=== PATIENT | male | born 1990 | race Caucasian/White ===

== ENCOUNTER 2021-12-10 11:07 | Emergency (ER) | payer MEDICAID, SELFPAY ==
--- NOTE | ~2021-12-10 | CT_ITS ---
EXAMINATION: CT ABDOMEN AND PELVIS WITHOUT CONTRAST CLINICAL INFORMATION: Question renal stones. COMPARISON: None TECHNIQUE: Multidetector volumetric imaging was performed from the superior aspect of the liver through the pubic symphysis. Sagittal and coronal reformatted images were obtained on the technologist's workstation. This CT examination was performed using dose optimization techniques as appropriate, variously including the following: *Automated exposure control *Adjustment of mA and/or kV according to patient size (this includes techniques or standardized protocols for targeted exams where dose is matched to indication/reason for exam; i.e. extremities or head) *Use of iterative reconstruction technique DLP: 357 mGy-cm FINDINGS: LUNG BASES: The lung bases appear clear, with no evidence of inflammation or nodules. LIVER, GALLBLADDER, AND BILIARY TREE: The liver appears unremarkable in size, shape, and attenuation. No focal hepatic lesion or biliary ductal dilatation is appreciated. Unremarkable appearance of the gallbladder. PANCREAS: Unremarkable SPLEEN: Unremarkable ADRENAL GLANDS: Unremarkable KIDNEYS AND URETERS: 0.3 cm distal left ureteral stone (image 66, axial series 3; image 47, coronal series 5). Mild associated left hydronephrosis and hydroureter. The kidneys otherwise appear unremarkable in size, shape, and attenuation. No hydronephrosis, hydroureter, or calculi seen seen on the right. BLADDER: Unremarkable GASTROINTESTINAL TRACT: The small and large bowel appear unremarkable. No diverticulosis. Normal-appearing distal ileum and vermiform appendix. ABDOMINAL WALL: No significant hernia is appreciated. LYMPH NODES: No evidence of adenopathy by size criteria. VASCULAR: Unremarkable PELVIC VISCERA: Unremarkable OSSEOUS STRUCTURES: Unremarkable CT/CT abdomen pelvis wo IV con IMPRESSION: 0.3 cm distal left ureteral stone. Mild associated left hydronephrosis and hydroureter.
[2021-12-10 11:34] VITALS: BP 137/88; PULSE 67; RESP 20; TEMP 35.9; O2SAT 98; BMI 21.1
[2021-12-10 11:47] LABS: Baso%MD 0.4 %; Eos%MD 1.1 %; Hematocrit 43.6 % (42.0-52.0); Hemoglobin 15.1 g/dl (14.0-18.0); IG%MD 0.4 %; Lymph%MD 9.6 %; Mean Corpuscular HGB Conc 34.6 g/dl (31.0-36.0); Mean Corpuscular Hemoglobin 31.4 pg (27.0-33.0); Mean Corpuscular Volume 90.6 fL (80.0-98.0); Mean Platelet Volume 10.1 fL (9.4-12.4); Mono%MD 4.9 %; Neut%MD 83.6 %; Platelet Count 264 X10*3/uL (160-400); Red Blood Count 4.81 X10*6/uL (4.60-5.80); Red Cell Distribution Width 12.9 % (11.0-16.0); White Blood Count 16.4 X10*3/uL (4.8-10.8)
[2021-12-10 11:58] LABS: Appearance Urine Turbid; Color Urine Dark Yellow; Glucose Urine UA Negative (Negative); Leukocyte Esterase Urine Trace (Negative); Nitrite Urine Negative (Negative); PH 5.5 (5.0-9.0); Specific Gravity - Urine >= 1.030 (1.005-1.025); UMIC TRIGGER UA YES; Urine Blood Large (3+) (Negative); Urine Ketones 15 mg/dL (Negative); Urine Protein 100 (2+) mg/dL (Neg-Trace)
[2021-12-10 12:03] LABS: Bacteria Urine None Seen (None Seen); RBC Urine >20 /HPF (0-2); Squamous Epithelial Cell Urine 0-2 /HPF (0-2); WBC Urine 0-5 /HPF (0-5)
[2021-12-10 12:04] LABS: Alanine Aminotransferase 22 U/L (0-40); Albumin Level 5.3 g/dL (3.5-5.0); Alkaline Phosphatase 87 U/L (39-117); Anion Gap 20 (12-20); Aspartate Amino Transferase 30 U/L (5-37); Bilirubin Total 0.9 mg/dL (0.0-1.0); Blood Urea Nitrogen 16 mg/dL (9-16); Calcium 9.8 mg/dL (8.4-10.2); Carbon Dioxide 22 mmol/L (22-29); Chloride 106 mmol/L (96-108); Creatinine Clr Calc Pharmacy 97.3; Estimated Glomerular Filt Rate > 60; Glucose Random 91 mg/dL (60-115); Potassium 4.1 mmol/L (3.3-5.1); Sodium 144 mmol/L (135-145); Total Protein 8.5 g/dL (6.5-8.0)
--- NOTE | 2021-12-10 12:45 | ED.ABDPAIN ---
HPI - Abdominal Pain General Chief Complaint: Abdominal Pain Stated Complaint: abd pain Time Seen by Provider: 12/10/21 12:23 Source: patient Mode of arrival: ambulatory Limitations: no limitations History of Present Illness HPI narrative: This is a 31 years old male presented to the emergency department with complaining of left flank pain since this morning denies any vomiting diarrhea fever he has a history of kidney stone MD elicited complaint: flank pain Pertinent past history: other (kidney stones) Onset (ago): hour(s) (4) Location: L flank Quality: aching Radiation: L flank Migration to: L flank Relieving factors: nothing Associated symptoms: denies other symptoms Related Data Previous Rx's Medication Instructions Recorded ibuprofen 800 mg tablet 800 mg PO TID PRN pain #20 tabs 12/10/21 oxycodone 5 mg tablet 5 mg PO Q6H PRN pain #15 tabs 12/10/21 tamsulosin 0.4 mg capsule (Flomax) 0.4 mg PO BEDTIME #10 caps 12/10/21 Allergies Allergy/AdvReac Type Severity Reaction Status Date / Time No Known Allergies Allergy Verified 12/10/21 12:38 Review of Systems Review of Systems Yes all other systems are reviewed and are negative Cardiovascular: Reports no additional cardiovascular complaints Respiratory: Reports no additional respiratory complaints Psychiatric: Reports no additional psychiatric complaints [facility] Past Medical History [facility] Narrative: kidney stones Social History Social History Alcohol intake: current Alcohol intake frequency: 0-2 drinks per day Smoked in Last 30 Days: Yes Use of substances other than those prescribed or required for medical reasons: Yes Substance Use Type: Marijuana Advance Directives: No Physical Exam ED Vital Signs: Vital Signs - 24 hr 12/10/21 11:34 12/10/21 13:12 12/10/21 13:43 Temperature 96.7 F L 97.6 F Pulse Rate 67 70 Respiratory Rate 20 18 15 Blood Pressure 137/88 125/84 Pulse Oximetry 98 100 Oxygen Delivery Method Room Air Room Air BMI result Body Mass Index 21.1 Const General: cooperative and healthy appearing Nutritional Appearance: average body habitus Orientation/consciousness: patient oriented x3 Limitations: no limitations HENMT Head: Yes normal to inspection Ears: hearing grossly normal bilaterally Face and sinus: Yes normal facial exam Mouth: Normal oral and palatal mucosa present Throat: Yes posterior oropharynx normal Neck Neck: Yes normal visual inspection and Yes full ROM Carotids: normal carotid upstroke Chest Chest palpation & inspection: normal inspection of the chest Resp Effort & Inspection: normal respiratory effort and able to speak in complete sentences Auscultation: clear to auscultation bilaterally Cardio Jugular venous distension: no JVD Rate: regular rate Rhythm: regular rhythm GI Inspection: Yes normal to inspection Palpation (GI): Soft to palpation and Tenderness to palpation present (GI) (left flank) Percussion: Yes normal to percussion Auscultation: normal bowel sounds General: Yes no CVA tenderness Back/Spine/Pelvis Back: no CVA tenderness Thoracic/Lumbar Spine: thoracic and lumbar spine normal to inspection Neuro General: patient oriented x3 Cranial nerves: Yes CN's II-XII intact bilaterally Course Reevaluation(s) Reevaluation #1: feels better ,asyntomatic at this time ct showed distal uretheral stone MDM - Abdominal Pain Lab Data Result diagrams: 12/10/21 11:42 12/10/21 11:42 Labs: Lab Results 12/10/21 12/10/21 12/10/21 Range/Units 11:42 11:42 11:42 WBC 16.4 H (4.8-10.8) X10*3/uL RBC 4.81 (4.60-5.80) X10*6/uL Hgb 15.1 (14.0-18.0) g/dl Hct 43.6 (42.0-52.0) % MCV 90.6 (80.0-98.0) fL MCH 31.4 (27.0-33.0) pg MCHC 34.6 (31.0-36.0) g/dl RDW 12.9 (11.0-16.0) % Plt Count 264 (160-400) X10*3/uL MPV 10.1 (9.4-12.4) fL Absolute Nucleated RBC 0.000 (0.0-0.012) X10*3/uL Nucleated RBC % (auto) 0.0 (0.0-0.2) /100WBC Neutrophils % (Manual) 78 H (45-73) % Band Neutrophils % 0 L (3-5) % Lymphocytes % (Manual) 16 L (20-40) % Monocytes % (Manual) 4 (2-11) % Basophils % (Manual) 2 (0-2) % Abs Neuts (Manual) 12.8 H (2.0-8.3) X10*3/uL Lymphocytes # (Manual) 2.6 (1.2-4.9) X10*3/uL Monocytes # (Manual) 0.7 (0.1-1.2) X10*3/uL Basophils # (Manual) 0.3 H (0.0-0.2) X10*3/uL Platelet Estimate NORMAL (NORMAL) Plt Morphology Comment NORMAL RBC Morphology NORMAL Sodium 144 (135-145) mmol/L Potassium 4.1 (3.3-5.1) mmol/L Chloride 106 (96-108) mmol/L Carbon Dioxide 22 (22-29) mmol/L Anion Gap 20 (12-20) BUN 16 (9-16) mg/dL Creatinine 0.97 (0.5-1.4) mg/dL Estim Creat Clear Calc 97.3 Estimated GFR > 60 Random Glucose 91 (60-115) mg/dL Calcium 9.8 (8.4-10.2) mg/dL Total Bilirubin 0.9 (0.0-1.0) mg/dL AST 30 (5-37) U/L ALT 22 (0-40) U/L Alkaline Phosphatase 87 (39-117) U/L Total Protein 8.5 H (6.5-8.0) g/dL Albumin 5.3 H (3.5-5.0) g/dL Urine Color Dark Yellow Urine Appearance Turbid Urine pH 5.5 (5.0-9.0) Ur Specific Thornton >= 1.030 H (1.005-1.025) Urine Protein 100 (2+) H (Neg-Trace) mg/dL Urine Glucose (UA) Negative (Negative) mg/dL Urine Ketones 15 (Negative) mg/dL Urine Blood Large (3+) H (Negative) Urine Nitrite Negative (Negative) Ur Leukocyte Esterase Trace H (Negative) Urine RBC >20 H (0-2) /HPF Urine WBC 0-5 (0-5) /HPF Ur Squamous Epith Cells 0-2 (0-2) /HPF Urine Bacteria None Seen (None Seen) Hyaline Casts 3-5 (0-2) /LPF Imaging Data CT scan - abdomen: Radiologist's impression: GASTROINTESTINAL TRACT: The small and large bowel appear unremarkable. No diverticulosis. Normal-appearing distal ileum and vermiform appendix.? ABDOMINAL WALL: No significant hernia is appreciated.? LYMPH NODES: No evidence of adenopathy by size criteria. VASCULAR: Unremarkable PELVIC VISCERA: Unremarkable OSSEOUS STRUCTURES: Unremarkable? CT/CT abdomen pelvis wo IV con IMPRESSION: ? 0.3 cm distal left ureteral stone. Mild associated left hydronephrosis and hydroureter. Dictated By: Kirby Bajwa Signed By: <Electronically signed by Kirby? Aydee in OV> 12/10/21 1456 Discharge Plan Discharge Clinical Impression: Renal colic on left side Patient Disposition: Home, Self-Care Instructions: Renal Colic (ED) Prescriptions: New tamsulosin [Flomax] 0.4 mg capsule 0.4 mg PO BEDTIME Qty: 10 0RF ibuprofen 800 mg tablet 800 mg PO TID PRN (Reason: pain) Qty: 20 0RF oxycodone 5 mg tablet 5 mg PO Q6H PRN (Reason: pain) Qty: 15 0RF Rx Instructions: partial filing upon pt request; Partial Fill upon patient request. Referrals: Junito Winston MD [Physician] - Stand Alone Forms: Work/School Release Interventions: ED Discharge Assessment Last Done: 12/10/21 15:36 Discharge Date/Time: 12/10/21 15:36
[2021-12-10 12:52] LABS: Basophils Abs Manual 0.3 X10*3/uL (0.0-0.2); Basophils Percent Manual 2 % (0-2); Lymphocytes Absolute Manual 2.6 X10*3/uL (1.2-4.9); Lymphocytes Percent Manual 16 % (20-40); Monocytes Absolute Manual 0.7 X10*3/uL (0.1-1.2); Monocytes Percent Manual 4 % (2-11); Neutrophils Percent Manual 78 % (45-73)
[2021-12-10 12:53] LABS: Band Neutrophils Percent 0 % (3-5); Neutrophils Absolute Manual 12.8 X10*3/uL (2.0-8.3); Platelet Estimate NORMAL (NORMAL); Platelet Morphology Comment NORMAL; RBC Morphology NORMAL
[2021-12-10] MEDS: Ketorolac Tromethamine 30 MG/ML VIAL IVPUSH (13:02)
[2021-12-10] MEDS: 0.9 % Sodium Chloride 1,000 ML 999 ML IVCONT (13:02)
[2021-12-10 13:12] VITALS: BP 125/84; PULSE 70; RESP 18; TEMP 36.4; O2SAT 100
[2021-12-10 13:43] VITALS: RESP 15
[2021-12-10] MEDS: HYDROmorphone HCl 0.5 MG/0.5 ML SYRINGE IVPUSH (13:43)
--- NOTE | 2021-12-12 09:10 | ECG_ITS ---
Test Reason : KIDNEYSTONES Blood Pressure : / mmHG Vent. Rate : 085 BPM Atrial Rate : 085 BPM P-R Int : 134 ms QRS Dur : 080 ms QT Int : 380 ms P-R-T Axes : 067 094 078 degrees QTc Int : 452 ms Normal sinus rhythm with sinus arrhythmia Rightward axis RSR' or QR pattern in V1 suggests right ventricular conduction delay Abnormal ECG No previous ECGs available Referred By: Alexander Pelayo Electronically Signed By:ARNIE REED MD
== END 2021-12-10 15:36 | disposition home or self-care (01) ==
PROVIDERS: Emergency Provider Emergency Medicine
DX: N13.2 Hydronephrosis with renal and ureteral calculous obstruction (principal)
CPT/HCPCS: 36415; 74176; 80053; 81001; 85007; 85027; 93005; 96374; 96375; 99284; J1170; J1885

== ENCOUNTER 2024-04-16 13:50 | Outpatient (AMB) | payer MEDICAID, SELFPAY ==
--- NOTE | 2024-04-16 13:54 | A.OFFVIS_ITS ---
Intake Visit Reasons: FC-Left clavicle fracture DOI 03/27/24. Intake Note: Dayo is a 33 year old right hand dominant male who presents today for a Fracture Care visit s/p Left Clavicle Fracture 03/27/24. Patient reports that he fell while snowboarding. He was seen at [facility] the same day as the injury and he was placed in a sling. Representative Personal Service Required: No Allergies No Known Allergies Allergy (Verified 04/16/24 14:15) Medication List - Last Reconciled 04/16/24 by Paula Reid RN ibuprofen 800 mg PO TID PRN oxycodone 5 mg PO Q6H PRN tamsulosin (Flomax) 0.4 mg PO BEDTIME HPI HPI FC-Left clavicle fracture DOI 03/27/24.: Details: 33-year-old gentleman presents to the office today for an injury he sustained to his left clavicle on 03/27/2024 while snowboarding. He was seen at [facility] Emergency Department where x-rays were obtained and he was found to have a minimally displaced clavicle fracture. He was placed in a sling and discharged home. Was referred to our office for ortho eval. He states since the time of injury he has been using the sling but has had mild discomfort. He is currently unemployed. [facility] Social History Alcohol intake: current Alcohol intake frequency: 0-2 drinks per day Substance Use Type: Marijuana Review of Systems Const All systems reviewed & are unremarkable except as noted in HPI and below Physical Exam Const General: cooperative and no acute distress Orientation/consciousness: patient oriented x3 Resp Effort & Inspection: normal respiratory effort and able to speak in complete sentences Cardio Peripheral pulses: Peripheral pulses 2+ throughout Neuro General: patient oriented x3 Extrem Other: Left clavicle mildly prominent and tender to palpation. There is no skin breakdown. He can forward flex to 85 degrees. Externally rotate to 40 degrees. He has good sensation throughout. Office Procedures AMB Fracture Care Fracture Billing Code: Fracture Billing Code Results Reviewed Results Reviewed: Xrays were obtained in the office today and personally reviewed by me of the left clavicle show ant displacement with some reduction compared to co ntralateral side Assessment & Plan Assessment & Plan (1) Closed left clavicular fracture: Code(s): S42.002A - Fracture of unspecified part of left clavicle, initial encounter for closed fracture Category: Medical Plan: I had a lengthy conversation with the patient about the extent of his injury. I explained with the injury being 3 weeks out there is potential for some bony healing that has taken place which is not evident on x-ray at this time. I explained to the patient proceeding with surgical intervention and nonsurgical intervention would likely have a similar outcome where he would have full range of motion and functional capacity. He is content with that however he is concerned with the bony prominence and if he were to wear a backpack over his shoulder he is questioning if that would cause discomfort. I reassured him that it is likely this would not be a problem for him approximately 6 months post injury however I can not guarantee. I also explained with surgical intervention it may be that the hardware could be prominent which could cause some irritation as well. At this time our plan is to see him back in 2 weeks for x-rays and re- evaluation to see how he is doing functionally and how the fracture is healing radiographically. All questions answered today patient will see me back 2 weeks with x-rays sooner if needed. Orders: Orders XR clavicle LT Today M89.8X1 - Other specified disorders of bone, shoulder Coding Level of Care Code New Pt Level 3 (17968) Complex EM visit Add On G2211 Diagnoses Closed left clavicular fracture S42.002A CPT Codes Fracture Care - Fracture Billing Code: Fracture Billing Code ([id number])
--- OUTSIDE RECORDS SUMMARY | 2024-04-16 16:23 | XMS_ITS | Clinical Summary ---
Author Organization [facility] Address [id number] [place] [id number] Care Team Providers Care Egg Breaking Machine Operator Name Role Phone Unavailable Primary Care Provider Unavailabl e Medical History Medical History Date Comments Asthma DX:Asthma Family History Medical History Relation Name Comments No Known Problems Father No Known Problems Mother Multiple sclerosis Mother's Brother Relation Name Status Comments Father Mother Mother's Brother Social History Tobacco Use Types Packs/Day Years Used Date Smoking Tobacco: Never Smokeless Tobacco: Never Alcohol Use Standard Drinks/Week Comments Yes 3 (1 standard drink = 0.6 oz pur e alcohol) Sex and Gender Information Value Date Recorded Sex Assigned at Not on file Legal Sex Male 3:26 PM EST Gender Identity Not on file Sexual Orientation Not on file Obstetrics History Plan of Treatment Health Maintenance Due Date Last Done Comments DTaP,Tdap,and Td Vaccines (1 - Tdap) 04/29/2011 Hepatitis B Vaccines (1 of 3 - 19+ 3-dose series) 04/29/2011 COVID-19 Vaccine (2023-2 5 season) 2023 Influenza Vaccine (#1) 2023 HIB Vaccines Aged Out No longer eligi ble based on patient's age to complete this topic HPV Vaccines Aged Out No longer eligi ble based on patient's age to complete this topic Hepatitis A Vaccines Aged Out No long er eligible based on patient's age to complete this topic IPV Vaccines Aged Out No longer eligi ble based on patient's age to complete this topic MMR Vaccines Aged Out No longer eligi ble based on patient's age to complete this topic Meningococcal ACWY Vaccine Aged Out N o longer eligible based on patient's age to complete this topic Meningococcal B Vacine Aged Out No lo nger eligible based on patient's age to complete this topic Pneumococcal Vaccine: Pediat rics (0 to 5 Years) and At-Risk Patients (6 to 64 Years) Aged Out No longer eligible b ased on patient's age to complete this topic RSV Immunization Patients Un aspen 20 months Aged Out No longer eligible b ased on patient's age to complete this topic Varicella Vaccines Aged Out No longer eligible based on patient's age to complete this topic
--- OUTSIDE RECORDS SUMMARY | 2024-04-16 16:23 | XMS_ITS | Clinical Summary ---
Author Organization [facility] Address [address] [place] [address] Care Team Providers Care Diver'S Tender Name Role Phone Pcp, No Primary Care Provider Unavailabl e Pcp, No Unavailable Unavailable Allergies No known active allergies Medications Medication Sig Dispensed Refills Start Date End Date Status albuterol (PROAIR RESPICLICK) 108 (90 Base) MCG/ACT inhaler Inhale 1 puff 4 times daily (every 6 hours) as needed. Active Active Problems No known active problems Immunizations Name Administration Dates Next Due Influenza (AFLURIA/FLUZONE) Inactivated/Split Quadrivalent with Preservative IM 04/01/2018(Deferred: Patient Refused) Social History Tobacco Use Types Packs/Day Years Used Date Smoking Tobacco: Never Smokeless Tobacco: Never Alcohol Use Standard Drinks/Week Comments Yes 0 (1 standard drink = 0.6 oz pur e alcohol) AUDIT-C Answer Date Recorded Frequency of Alcohol Consumption Monthly or less 04/01/2018 Average Number of Drinks Not on file 019 Frequency of Binge Drinking Not on file 03/09 Sex and Gender Information Value Date Recorded Sex Assigned at Not on file Gender Identity Not on file Sexual Orientation Not on file Last Filed Vital Signs Vital Sign Reading Time Taken Comments Blood Pressure 154/81 04/16/2020 1:56 PM EST Pulse 78 04/16/2020 1:56 PM EST Temperature 37.2 ??C (98.9 ??F) 04/16/2020 1:56 PM ES T Respiratory Rate 16 09/24/2019 11:30 AM EDT Oxygen Saturation 98% 04/16/2020 1:56 PM EST Inhaled Oxygen Concentration - - Weight 61.2 kg (135 lb) 04/16/2020 1:56 PM EST Height 170.2 cm (5' 7 ) 04/16/2020 1:56 PM EST Body Mass Index 21.14 04/16/2020 1:56 PM EST Plan of Treatment Health Maintenance Due Date Last Done Comments Hepatitis C Virus Screening 1992 HIV Screening 2005 DTaP/Tdap/Td Vaccines (1 - Tdap) 04/29/2011 Hepatitis B Vaccines (1 of 3 - 19+ 3-dose series) 04/29/2011 Influenza Vaccine 09/06/2023 COVID-19 Vaccine (2 - 2023-2 5 season) 2023 05/18/2020 HPV Vaccines Aged Out No longer eligi ble based on patient's age to complete this topic Pneumococcal Vaccine: Pediat carolyn (0-5 Years) and At-Risk Patients (6 to 49 Years) Aged Out No longer eligible b ased on patient's age to complete this topic Care Teams Diver'S Tender Relationship Specialty Start Date End Date Pcp, No PCP - General General Medicine 04/16/20 Pcp, No General Medicine 04/16/20
--- OUTSIDE RECORDS SUMMARY | 2024-04-16 16:23 | XMS_ITS | Clinical Summary ---
Author Organization [facility] Address [address] [place] [address] Care Team Providers Care Delivery Driver/Supervisor Name Role Phone Unavailable Primary Care Provider Unavailabl e Allergies No known active allergies Medications No known medications Active Problems Problem Noted Date Diagnosed Date Mood disorder 11/12/2018 Suicide attempt by benzodiazepine overdose 11/11 Major depression, recurrent 11/09/2018 Family History Medical History Relation Name Comments No Sig Med Hx Father Multiple sclerosis Maternal Uncle No Sig Med Hx Mother Relation Name Status Comments Father Maternal Uncle Mother Social History Tobacco Use Types Packs/Day Years Used Date Smoking Tobacco: Never Smokeless Tobacco: Never Tobacco Cessation:Counseling Given: No Alcohol Use Standard Drinks/Week Comments Yes 3 (1 standard drink = 0.6 oz pur e alcohol) 3 beers 3xs/week Sex and Gender Information Value Date Recorded Sex Assigned at Male 11/09/2018 1:04 PM EDT Gender Identity Male 11/09/2018 1:04 PM EDT Sexual Orientation Straight 11/09/2018 1: 12 PM EDT Last Filed Vital Signs Vital Sign Reading Time Taken Comments Blood Pressure 122/85 11/12/2018 7:59 AM EDT Pulse 97 11/12/2018 7:59 AM EDT Temperature 36.6 ??C (97.9 ??F) 11/12/2018 7:57 AM ED T Respiratory Rate 18 11/12/2018 7:59 AM EDT Oxygen Saturation 100% 11/12/2018 7:57 AM EDT Inhaled Oxygen Concentration - - Weight 61.2 kg (135 lb) 11/09/2018 7:43 PM EDT Height 170.2 cm (5' 7 ) 11/09/2018 7:43 PM EDT Body Mass Index 21.14 11/09/2018 7:43 PM EDT Plan of Treatment Not on file Advance Directives For more information, please contact: [phone] Documents on File Type Date Recorded Patient Boiler Riveter Expl anation Advance Directive and Living Will 11/09/2018 1:50 PM Latest Code Status on File Code Status Date Activated Date Inactivated Comments Full Code 11/09/2018 9:16 PM 11/12/2018 8:26 PM This code status was ascertained in the following way: per unit protocol.
--- OUTSIDE RECORDS SUMMARY | 2024-04-16 16:23 | XMS_ITS ---
Author Name [facility] Organization Unknown Care Team Organization Name Specialty Phone Email Start Date End [facility] ([facility]) 202311/14/2023 [facility] 12/07/2021 11/06/2023
--- OUTSIDE RECORDS SUMMARY | 2024-04-16 16:23 | XMS_ITS | Encounter Summary ---
Author Organization [facility] Address [address] [place] [address] Care Team Providers Care Nuclear Medicine Technician Name Role Phone Pcp, No Primary Care Provider Unavailabl e Pcp, No Unavailable Unavailable Encounter Details Date Type Department Care Team (Late st Contact Info) Description 04/16/2020 2:10 PM EST Hospital Encounter [facility] [address] [place] [id number] Matthew Lang MD [address] [place] [address] Social History Tobacco Use Types Packs/Day Years Used Date Smoking Tobacco: Never Assessed AUDIT-C Answer Date Recorded Frequency of Alcohol Consumption Monthly or less 04/01/2018 Average Number of Drinks Not on file 019 Frequency of Binge Drinking Not on file 03/09 Sex and Gender Information Value Date Recorded Sex Assigned at Not on file Gender Identity Not on file Sexual Orientation Not on file COVID-19 Exposure Response Date Recorded In the last month, have you been in contact with someone who was confirmed or suspected to have Coronavirus / COVID-19? No / Unsure 04/16/2020 1:14 PM EST documented as of this encounter Plan of Treatment Not on file documented as of this encounter Procedures Procedure Name Priority Date/Time Associated Diagnosis Comments XR CLAVICLE-RIGHT Routine 04/16/2020 2:2 7 PM EST Acromioclavicular sprain, right, initial encounter documented in this encounter Results * XR Clavicle-Right (04/16/2020 2:27 PM EST) Anatomical Region Laterality Modality Shoulder Right Computed Radiogr aphy 04/16/2020 2:29 PM EST Impressions 04/16/2020 2:31 PM EST There is a lucency in the right first rib which is likely an old injury. Recommend palpating over the rib for any tenderness. Clavicle and AC joint are intact. Narrative 04/16/2020 2:31 PM EST XR CLAVICLE-RIGHT: 04/16/2020 2:10 PM CLINICAL HISTORY: shoulder pain. Acromioclavicular sprain, right, initial encounter. 2 views. FINDINGS: The clavicle is intact. There is a lucency in the right first rib. Age of this fracture is indeterminant, and likely old. AC joint is unremarkable. Shoulder intact. Procedure Note Savanah Bravo MD - 04/16/2020 XR CLAVICLE-RIGHT: 04/16/2020 2:10 PM CLINICAL HISTORY: shoulder pain. Acromioclavicular sprain, right, initial encounter. 2 views. FINDINGS: The clavicle is intact. There is a lucency in the right firstrib. Age of this fracture is indeterminant, and likely old. AC joint isunremarkable. Shoulder intact. IMPRESSION: There is a lucency in the right first rib which is likely an old injury.Recommend palpating over the rib for any tenderness. Clavicle and AC jointare intact. Carmine Lee PA-C [facility] ING ORDERABLES documented in this encounter Visit Diagnoses Not on filedocumented in this encounter Care Teams Nuclear Medicine Technician Relationship Specialty Start Date End Date Pcp, No PCP - General General Medicine 04/16/20 Pcp, No General Medicine 04/16/20 documented as of this encounter
--- OUTSIDE RECORDS SUMMARY | 2024-04-16 16:23 | XMS_ITS | Clinical Summary ---
Author Organization [facility] Address [address] [place] [address] Care Team Providers Care Automatic Developer Name Role Phone Sukhwinder Potts MD Primary Care Provider Unavaila Sukhwinder Perez MD Unavailable Unavailable Immunizations Name Administration Dates Next Due Influenza,split(incl.purifie d surface antigen) 12/04/2006,11/25/2003,01/17/2003 Td (adult), adsorbed 07/28/2004 Social History Tobacco Use Types Packs/Day Years Used Date Smoking Tobacco: Never Assessed Sex and Gender Information Value Date Recorded Sex Assigned at Not on file Legal Sex Male 11:32 AM EDT Gender Identity Not on file Sexual Orientation Not on file Plan of Treatment Health Maintenance Due Date Last Done Comments Hepatitis C Screening 1992 DTaP/Tdap/Td (2 - Tdap) 07/29/2004 07/28/2004 Hep B (1 of 3 - 19+ 3-dose series) 04/29/2011 COVID-19 Vaccine ( - 2023-2 5 season) 2023 Influenza (#1) 2023 12/04/2006, 11/25/2003, 01/17/2003 Zoster (Shingrix) (1 of 2) 2042 HPV Vaccine Aged Out No longer eligi ble based on patient's age to complete this topic Hep A Aged Out No longer eligi ble based on patient's age to complete this topic Hib Aged Out No longer eligi ble based on patient's age to complete this topic Meningococcal ACWY Aged Out No longer eligible based on patient's age to complete this topic Pneumococcal Aged Out No longer eligi ble based on patient's age to complete this topic Care Teams Automatic Developer Relationship Specialty Start Date End Date Sukhwinder Potts MD PCP - General 09/11/22 Sukhwinder Potts MD PCP - Backup PCP Pediatrics 03/08/23
== END 2024-04-16 14:35 | disposition home or self-care (01) ==
LOC: HO.HOS 13:51
PROVIDERS: Visit Provider Physician Assistant
DX: S42.002A Fracture of unspecified part of left clavicle, initial encounter for closed fracture (principal)
CPT/HCPCS: 99203

== ENCOUNTER → 2024-04-16 14:04 | Outpatient (BNV) | payer MEDICAID, SELFPAY | PROVIDERS: Visit Provider Radiology Diagnostic Radiology | DX: M89.8X1 Other specified disorders of bone, shoulder (principal); S42.022A Displaced fracture of shaft of left clavicle, initial encounter for closed fracture | CPT/HCPCS: 73000 ==

== ENCOUNTER 2024-04-16 14:12 | Outpatient (REF) | payer MEDICAID, SELFPAY ==
--- NOTE | ~2024-04-16 | XR_ITS ---
EXAMINATION: XR CLAVICLE LEFT HISTORY: M89.8X1 - Other specified disorders of bone, shoulder COMPARISON: Comparison is made with the prior examination from [facility] dated 03/27/2024. FINDINGS: Two views of the left clavicle are submitted. Osseous mineralization is normal. Again seen is a comminuted fracture of the midshaft of the clavicle with inferior displacement and overriding of the distal fracture fragment. The appearance is not significantly changed given differences in technique and patient positioning. The glenohumeral and acromioclavicular joint spaces are preserved. The soft tissues are unremarkable. XR/XR clavicle LT IMPRESSION: Comminuted fracture of the midshaft of the left clavicle without significant change. Electronically signed by: Charlie Kinney MD 04/17/2024 07:38 AM EDT
--- OUTSIDE RECORDS SUMMARY | 2024-04-17 18:02 | XMS_ITS | Encounter Summary ---
Author Organization [facility] Address [address] [place] [address] Care Team Providers Care Photographic Press Screwmaker Name Role Phone Pcp, No Primary Care Provider Unavailabl e Pcp, No Unavailable Unavailable Encounter Details Date Type Department Care Team (Late st Contact Info) Description 04/16/2020 2:10 PM EST Hospital Encounter [facility] [address] [place] [phone] Matthew Lang MD [address] [place] [address] Social History Tobacco Use Types Packs/Day Years [...] on filedocumented in this encounter Care Teams Photographic Press Screwmaker Relationship Specialty Start Date End Date Pcp, No PCP - General General Medicine 04/16/20 Pcp, No General Medicine 04/16/20 documented as of this encounter
--- OUTSIDE RECORDS SUMMARY | 2024-04-17 18:02 | XMS_ITS | Clinical Summary ---
Author Organization [facility] Address [address] [place] [address] Care Team Providers Care Decal Applier Name Role Phone Pcp, No Primary Care [...] age to complete this topic Care Teams Decal Applier Relationship Specialty Start Date End Date Pcp, No PCP - General General Medicine 04/16/20 Pcp, No General Medicine 04/16/20
--- OUTSIDE RECORDS SUMMARY | 2024-04-17 18:02 | XMS_ITS | Clinical Summary ---
Author Organization [facility] Address [address] [place] [address] Care Team Providers Care Ergonomics Technician Name Role Phone Sukhwinder Potts MD Primary [...] age to complete this topic Care Teams Ergonomics Technician Relationship Specialty Start Date End Date Sukhwinder Potts MD PCP - General 09/11/22 Sukhwinder Potts MD PCP - Backup PCP Pediatrics 03/08/23
--- OUTSIDE RECORDS SUMMARY | 2024-04-17 18:02 | XMS_ITS | Clinical Summary ---
Author Organization [facility] Address [address] [place] [address] Care Team Providers Care Underwear Cutter Name Role Phone Unavailable Primary Care Provider [...] Advance Directives For more information, please contact: [phone] Documents on File Type Date Recorded Patient Mobile Lab Technician Expl anation Advance Directive and Living Will 11/09/2018 1:50 PM Latest Code Status on File Code Status Date Activated Date Inactivated Comments Full Code 11/09/2018 9:16 PM 11/12/2018 8:26 PM This code status was ascertained in the following way: per unit protocol.
--- OUTSIDE RECORDS SUMMARY | 2024-04-17 18:02 | XMS_ITS | Clinical Summary ---
Author Organization [facility] Address [id number] [place] [id number] Care Team Providers Care Plant Technician/Control Room Operator Name Role Phone Unavailable Primary Care [...]
== END 2024-04-16 14:13 | disposition home or self-care (01) ==
LOC: HO.HOSX 14:12
PROVIDERS: Visit Provider Physician Assistant
DX: S42.002A Fracture of unspecified part of left clavicle, initial encounter for closed fracture (principal); M89.8X1 Other specified disorders of bone, shoulder
CPT/HCPCS: 73000; 99212

== ENCOUNTER 2024-05-01 09:22 | Outpatient (REF) | payer OTHER, SELFPAY ==
--- NOTE | ~2024-05-01 | XR_ITS ---
EXAMINATION: XR CLAVICLE, LEFT CLINICAL INFORMATION: M89.8X1 - Other specified disorders of bone, shoulder COMPARISON: April 16, 2024. TECHNIQUE: AP views of the left clavicle. FINDINGS: Comminuted displaced fracture mid diaphysis of the clavicle resulting in inferior displacement distal fragment and 1.5 cm overriding fragments. No callus formation. XR/XR clavicle LT IMPRESSION: No healing comminuted displaced fracture mid diaphysis, left clavicle. Electronically signed by: Alexander Fuchs MD 05/01/2024 04:29 PM EDT
== END 2024-05-01 09:23 | disposition home or self-care (01) ==
LOC: HO.HOSX 09:22
PROVIDERS: Visit Provider Physician Assistant
DX: S42.032G Displaced fracture of lateral end of left clavicle, subsequent encounter for fracture with delayed healing (principal); M89.8X1 Other specified disorders of bone, shoulder
CPT/HCPCS: 73000; 99212

== ENCOUNTER 2024-05-01 14:26 | Outpatient (AMB) | payer OTHER, SELFPAY ==
--- NOTE | 2024-05-01 14:35 | MHC.OFFVIS ---
Vital Signs 05/01/24 14:50 Height 5 ft 7 in Weight 135 lb BMI 21.1 Intake Visit Reasons: OV- lt clavicle fx DOI 03/27/24 w xrays Intake Note: Dayo is a 34 year old right hand dominant male who presents today for a follow up of his left clavicle fracture DOI: 03/27/24. Patient fell while snowboarding. At his last visit surgical vs non surgical treatment was discussed. Patient reports that he feels he stained a muscle in his neck. He feels a tightness burning sensation. He also mentions that upon laying down his will have ringing in his both of his ears. He does at home exercises as instructed however he is unsure if it is helping. Allergies No Known Allergies Allergy (Verified 05/01/24 14:55) Medication List - Last Reconciled 05/01/24 by Kathy Navarro PA-C ibuprofen 800 mg PO TID PRN tamsulosin (Flomax) 0.4 mg PO BEDTIME HPI HPI OV- lt clavicle fx DOI 03/27/24 w xrays: Details: 34-year-old male returns to the office today for a follow-up left clavicle fracture. The injury occurred about a month ago, with ongoing symptoms such as continuous pain and episodes of tightness at the fracture site. Discomfort remains, especially pronounced upon waking and moving the affected area. The patient has noted an unusual breakout on the shoulder that corresponds with the site of injury. [facility] Social History Alcohol intake: current Alcohol intake frequency: 0-2 drinks per day Substance Use Type: Marijuana Review of Systems Const All systems reviewed & are unremarkable except as noted in HPI and below Physical Exam Vital Signs: BMI result Body Mass Index 21.1 Const General: cooperative and no acute distress Orientation/consciousness: patient oriented x3 Resp Effort & Inspection: normal respiratory effort and able to speak in complete sentences Cardio Peripheral pulses: Peripheral pulses 2+ throughout Neuro General: patient oriented x3 Extrem Other: Left clavicle mildly prominent and tender to palpation. There is no skin breakdown. He can forward flex to 85 degrees. Externally rotate to 40 degrees. He has good sensation throughout. Results Reviewed Results Reviewed: Xrays were obtained in the office today and personally reviewed by me of the left clavicle show ant displacement with some reduction compared to contralateral side Assessment & Plan Assessment & Plan (1) Closed left clavicular fracture: Code(s): S42.002A - Fracture of unspecified part of left clavicle, initial encounter for closed fracture Category: Medical Qualifiers: Encounter type: subsequent encounter Clavicle location: lateral end Fracture alignment: displaced Fracture healing: with delayed healing Qualified Code(s): S42.032G - Displaced fracture of lateral end of left clavicle, subsequent encounter for fracture with delayed healing Plan Dr. Crenshaw was available to see the patient with me today. I discussed the plan for surgical intervention with the patient, emphasizing the need for correction given the displaced state of the fracture and the patient's desire to return to higher activity levels. I explained the surgical procedure, including risks of infection, hardware irritation, and longer surgical times due to callus removal. We reviewed the timeline for recovery, outlining six weeks with no lifting progressing to cautious activity resumption, culminating in return to full activity within six months. We discussed the risks benefits and alternatives risks including but not limited to infection, nonunion or malunion, painful hardware, nerves 2 surrounding tissue and bone. The necessity of a follow-up plan, including monitoring the healing progress and addressing any complications, was highlighted. The patient was booked for ORIF of the left clavicle with Dr. Crenshaw. Orders: Orders XR clavicle LT Today M89.8X1 - Other specified disorders of bone, shoulder Coding Level of Care Code Est Pt Level 4 (08727) Complex EM visit Add On G2211 Diagnoses Closed displaced fracture of acromial end of left clavicle with delayed healing, subsequent encounter S42.032G Encounter type: subsequent encounter Clavicle location: lateral end Fracture alignment: displaced Fracture healing: with delayed healing
[2024-05-01 14:50] VITALS: BMI 21.1
== END 2024-05-01 15:56 | disposition home or self-care (01) ==
PROVIDERS: Visit Provider Physician Assistant
DX: S42.032A Displaced fracture of lateral end of left clavicle, initial encounter for closed fracture (principal)
CPT/HCPCS: 99214; G2211

== ENCOUNTER → 2024-05-01 14:34 | Outpatient (BNV) | payer MEDICAID, SELFPAY | PROVIDERS: Visit Provider Radiology Diagnostic Radiology | DX: M89.8X1 Other specified disorders of bone, shoulder (principal) | CPT/HCPCS: 73000 ==

== ENCOUNTER 2024-05-06 07:01 | Day surgery (SDC) | payer OTHER, SELFPAY ==
--- OUTSIDE RECORDS SUMMARY | 2024-05-05 15:56 | XMS_ITS | Encounter Summary ---
Author Organization [facility] Address [address] [place] [address] Care Team Providers Care Finish Filer Name Role Phone Pcp, No Primary Care Provider Unavailabl e Pcp, No Unavailable Unavailable Encounter Details Date Type Department Care Team (Late st Contact Info) Description 04/16/2020 2:10 PM EST Hospital Encounter [facility] [address] [place] [phone] Matthew Lang MD [address] [place] [address] Social History Tobacco Use Types Packs/Day Years [...] on filedocumented in this encounter Care Teams Finish Filer Relationship Specialty Start Date End Date Pcp, No PCP - General General Medicine 04/16/20 Pcp, No General Medicine 04/16/20 documented as of this encounter
--- OUTSIDE RECORDS SUMMARY | 2024-05-05 15:57 | XMS_ITS | Clinical Summary ---
Author Organization [facility] Address [address] [place] [address] Care Team Providers Care Buyer Grain Name Role Phone Unavailable Primary Care Provider [...] Advance Directives For more information, please contact: [phone] Documents on File Type Date Recorded Patient Gas Pumper Expl anation Advance Directive and Living Will 11/09/2018 1:50 PM Latest Code Status on File Code Status Date Activated Date Inactivated Comments Full Code 11/09/2018 9:16 PM 11/12/2018 8:26 PM This code status was ascertained in the following way: per unit protocol.
--- OUTSIDE RECORDS SUMMARY | 2024-05-05 15:57 | XMS_ITS | Clinical Summary ---
Author Organization [facility] Address [address] [place] [address] Care Team Providers Care Predatory Animal Trapper Name Role Phone Sukhwinder Potts MD Primary [...] age to complete this topic Care Teams Predatory Animal Trapper Relationship Specialty Start Date End Date Sukhwinder Potts MD PCP - General 09/11/22 Sukhwinder Potts MD PCP - Backup PCP Pediatrics 03/08/23
--- OUTSIDE RECORDS SUMMARY | 2024-05-05 15:57 | XMS_ITS | Clinical Summary ---
Author Organization [facility] Address [address] [place] [phone] Care Team Providers Care Stock Wetter Name Role Phone Unavailable Primary Care Provider [...]
--- OUTSIDE RECORDS SUMMARY | 2024-05-05 15:57 | XMS_ITS | Clinical Summary ---
Author Organization [facility] Address [address] [place] [address] Care Team Providers Care Roll Builder Name Role Phone Pcp, No Primary Care [...] age to complete this topic Care Teams Roll Builder Relationship Specialty Start Date End Date Pcp, No PCP - General General Medicine 04/16/20 Pcp, No General Medicine 04/16/20
[2024-05-06] VITALS (10 sets, daily range): BP systolic 122–144; BP diastolic 83–99; PULSE 71–94; RESP 16–20; TEMP 36.2–37.1; O2SAT 98–100; BMI 22.3
--- NOTE | ~2024-05-06 | XR_ITS ---
EXAMINATION: XR CLAVICLE LEFT HISTORY: ORIF lt clavicle COMPARISON: Comparison is made with the prior examination dated 05/01/2024. FINDINGS: Two views of the left clavicle are submitted. Osseous mineralization is normal. The patient is status post internal fixation of the previously noted comminuted fracture of the clavicle with a sideplate and multiple orthopedic screws. Alignment is anatomic. The AC joint is preserved. The soft tissues are unremarkable. XR/XR clavicle LT IMPRESSION: Internal fixation of the previously seen comminuted fracture of the left clavicle. Electronically signed by: Charlie Kinney MD 05/07/2024 07:55 AM EDT
--- NOTE | ~2024-05-06 | FL_ITS ---
EXAMINATION: FL GUIDANCE ONLY HISTORY: LEFT CLAVICLE ORIF COMPARISON: Correlation is made to plain films of the left clavicle dated 05/01/2024. TECHNIQUE: Fluoroscopy time: 0.3 minutes. Cumulative Dose: 4.25 mGy. DAP: 0.0739 mGym2 Images: 8. FINDINGS: Images demonstrate internal fixation of the previously seen comminuted fracture with a sideplate and multiple orthopedic screws. Alignment is anatomic. FL/FL guidance in OR IMPRESSION: Fluoroscopy during procedure. Please see procedure report for additional information. Electronically signed by: Charlie Kinney MD 05/07/2024 07:56 AM EDT
--- NOTE | 2024-05-06 07:33 | MHC.SHP ---
Pre-Procedural Eval Section A - 24 Hr Update-Section A only Date of Service: 05/06/24 The patient is an INPATIENT: No Changes since office visit: No Cold of Flu in the past 2 weeks, No New Medical Problems, No Changes in Medication and No Patient answered all questions The patient has been examined within 24 hours of the surgical procedure. The History & Physical has been completed within 30 days and I have reviewed it.: Yes Section B - Complete if H&P > 30 days Chief Complaint: Fracture of unspecified part of left clavicle, Allergies: Allergies Allergy/AdvReac Type Severity Reaction Status Date / Time No Known Allergies Allergy Verified 05/01/24 14:55 Plan I have reviewed the history and physical and performed a pertinent physical examination on my patient. No changes have occurred unless specified. Time Spent With Patient Time: Total time managing care of this patient today ____ minutes.
[2024-05-06] MEDS: Lactated Ringers 1,000 ML 80 ML IVCONT (07:40)
--- NOTE | 2024-05-06 09:08 | HO.ANESPROP2 ---
HPI - Anesthesia Eval Consult details Narrative: left clavicular fracture preexisting tinnitus ( before injury) L>R PMFSH Active Problems Active Problems: All Active Problems Closed left clavicular fracture (Acute) Past Medical History Medical History Kidney stones Asthma Family History Family history of problems with anesthesia: No Surgical History History of Problems with Anesthesia: No Social History Social History Alcohol intake: current Alcohol intake frequency: 0-2 drinks per day Patient Tobacco Use Status: Current everyday Tobacco user Tobacco use type: Smokeless Tobacco Use of substances other than those prescribed or required for medical reasons: Yes Substance Use Type: Marijuana Are you DNR?: No Advance Directives: No Advance Directives Information Provided: Yes Poor oral hygiene: No Meds Allergies Allergy/AdvReac Type Severity Reaction Status Date / Time No Known Allergies Allergy Verified 05/01/24 14:55 Active Medications: Current Medications Lactated Ringer's (Lr) 1,000 mls @ 80 mls/hr IVCONT .[id number] EDWARDO Last Admin: 05/06/24 07:40 Dose: 80 mls/hr Exam Height,Weight and Vital Signs: Height 5 ft 6 in Weight 62.7 kg Last Vital Signs Temp 98.8 F 05/06/24 07:28 Pulse 83 05/06/24 07:28 Resp 16 05/06/24 07:28 BP 131/99 H 05/06/24 07:28 Pulse Ox 98 05/06/24 07:28 O2 Del Method Room Air 05/06/24 07:28 Airway Mallampati Class: II TM Dist: >3cm Neck ROM: Full Heart: rrr Lungs: cta Assessment and Plan Assessment Anesthesia Assessment: Anesthesia Plan Discussed, Smoking Cess. Discussed and Chart Reviewed Final Anesthetic Review Family History of Problems with Anesthesia: No History of Problems with Anesthesia: No NPO: Yes ASA Class: II Final Preanesthetic Review: No Changes in Pt Med Stat, Meds/Allgs Chart Reviewed, Consent Obtained/Reviewed and Anes Risks/Benef Reviewed Patient Risk: Low Procedure Risk: Intermediate Anesthetic Plan Anesthetic Plan: GA Disposition: Standard PACU, Extended PACU, Inp. Admit - Standard Bed, Inp. Admit - IMC and Inp. Admit - ICU
[2024-05-06] MEDS: ceFAZolin Sodium/Dextrose,Iso 2 GM/50 ML PIGGYBACK IV (10:35)
--- NOTE | 2024-05-06 12:18 | P.OP_ITS ---
Operative Note Operative Note Date of Service: 05/06/24 Narrative: Date of Service: 05/06/24 Pre-op diagnosis: Left clavicle fracture Post-op diagnosis: same Procedure: ORIF left clavicle Implants: Fatou superior clavicel plate 1.2 cc Vitoss Surgeon: Owen Crenshaw MD Anesthesia: GETA and local Was an Farm Planner used for this Procedure?: Yes Farm Planner: Kathy Navarro Estimated blood loss (mL): 100 IV fluids (mL): 1,000 Pathology: none sent Condition: stable Disposition: PACU Patient was brought to the operating room and placed in the beach chair position on the surgical table. The site was prepped and draped in standard sterile fashion and a time out was called to identify proper site, proper procedure and IV antibiotics per weight were administered. I began by making a superior incision over the clavicle. There was a early malunion in the shaft and the incision was made anterior to this. Cautery was used to maintain hemostasis and Littler scissors were used to dissect down to the callous. THe callous was removed and the shortened lateral piece and the superiorly displaced medial piece were dissected out with a periosteal elevator and a rongeur. The two ends of the fracture were identified and placed in a anatomic position and a superior clavicle plate was selected. Biplanar fluoro was used to confirm fracture reduction and hardware placement. I used an additional lobster claw to provisionally reduce the fracture and theplate was placed superiorly and held in place with lobster claws. Visually I was satisfied with the fracture reduction and fluoro demonstrated sufficient length of the plate. I then used standard AO technique to place 4 bicortical screws lateral to the fracture and 4 bicortical screws medially, the first one being placed in compression. Again biplanar fluoroscopy was used to confirm appropriate hardware location, fracture reduction and screw length. Once I was satisfied with these parameters I copiously irrigated and placed 1.3 mm of Vitoss in the fracture and covered this wih a piece of cortical bone/callous that had been previously removed. I then closed with absorbable suture, skin glue and Steri-Strips. 30 ml of Ropivicaine loida injected. Patient was placed in sterile dressing and extubated brought to recovery room stable condition there were no known complications.
[2024-05-06] MEDS: HYDROmorphone HCl 0.5 MG/0.5 ML SYRINGE 0.25 MG IVPUSH ×2 (12:55→13:00)
== END 2024-05-06 13:56 | disposition home or self-care (01) ==
PROVIDERS: Visit Provider Orthopaedic Surgery
PROC: (CPT 23515; principal; 2024-05-06 09:50)
DX: S42.032A Displaced fracture of lateral end of left clavicle, initial encounter for closed fracture (principal); W00.0XXA Fall on same level due to ice and snow, initial encounter; Y93.23 Activity, snow (alpine) (downhill) skiing, snowboarding, sledding, tobogganing and snow tubing; Y92.9 Unspecified place or not applicable; Y99.9 Unspecified external cause status; J45.909 Unspecified asthma, uncomplicated; H93.13 Tinnitus, bilateral; Z87.442 Personal history of urinary calculi; F17.290 Nicotine dependence, other tobacco product, uncomplicated
CPT/HCPCS: 23515; 73000; C1713; C9362; J0131; J0690; J1100; J1171; J1596; J2003; J2250; J2371; J2405; J2704; J2795; J3010

== ENCOUNTER → 2024-05-06 07:01 | Outpatient (BNV) | payer OTHER, SELFPAY | PROVIDERS: Visit Provider Orthopaedic Surgery | DX: S42.002A Fracture of unspecified part of left clavicle, initial encounter for closed fracture (principal) | CPT/HCPCS: 23515 ==

== ENCOUNTER → 2024-05-06 13:22 | Outpatient (BNV) | payer OTHER, SELFPAY | PROVIDERS: Visit Provider Radiology Diagnostic Radiology | DX: S42.002A Fracture of unspecified part of left clavicle, initial encounter for closed fracture (principal) | CPT/HCPCS: 73000 ==

== ENCOUNTER 2024-05-15 11:33 | Outpatient (AMB) | payer OTHER, SELFPAY ==
--- NOTE | 2024-05-15 11:43 | MHC.OFFVIS ---
Intake Visit Reasons: PO LT clavicle ORIF 05/06/24 NE Intake Note: Dayo is a 34 year old male who presents today for a post operative visit s/p left clavicle ORIF, DOS 05/06/24. Patient reports he is doing well, states his pain has been tolerable. Allergies No Known Allergies Allergy (Verified 05/15/24 11:52) Medication List - Last Reconciled 05/15/24 by Kathy Navarro PA-C acetaminophen 650 mg (2 x 325 mg) PO Q6H PRN 30 days ibuprofen 800 mg PO TID PRN oxycodone 5 mg PO Q4H PRN 7 days HPI HPI PO LT clavicle ORIF 05/06/24 NE: Details: 34-year-old gentleman returns to the office today status post left clavicle ORIF 05/06/[address] Crenshaw. He continues to use the sling as needed for comfort. No concerns today. [facility] Medical History Kidney stones Asthma Social History Alcohol intake: current Alcohol intake frequency: 0-2 drinks per day Patient Tobacco Use Status: Current everyday Tobacco user Tobacco use type: Smokeless Tobacco Substance Use Type: Marijuana Review of Systems Const All systems reviewed & are unremarkable except as noted in HPI and below Physical Exam Extrem Other: Left clavicle incision is clean dry and intact. No surrounding erythema or drainage. Neurovascularly intact. Results Reviewed Results Reviewed: X-rays of the left clavicle obtained in the office today and reviewed by me show intact orthopedic hardware with stable fracture reduction. Assessment & Plan Assessment & Plan (1) Closed left clavicular fracture: Code(s): S42.002A - Fracture of unspecified part of left clavicle, initial encounter for closed fracture Category: Medical Qualifiers: Encounter type: subsequent encounter Clavicle location: lateral end Fracture alignment: displaced Fracture healing: with delayed healing Qualified Code(s): S42.032G - Displaced fracture of lateral end of left clavicle, subsequent encounter for fracture with delayed healing Plan: Incision is to remain clean dry and intact. I encouraged him to keep this dry. If he does need to shower he should pat this dry and keep it dry throughout the day. If he notices any saturation of the incision area drainage or increased redness/pain he should contact our office for a wound check. Otherwise he can use a sling for comfort. Remove the sling throughout the day to allow the elbow to hanging and work on postural stabilization. He should perform no lifting more than a cell phone or a coffee cup. No excessive lifting or reaching above head. He will see us back in 4 weeks with x-rays sooner if needed. Orders: Orders XR clavicle LT Today M89.8X1 - Other specified disorders of bone, shoulder Coding Level of Care Code Global (43096) Diagnoses Closed displaced fracture of acromial end of left clavicle with delayed healing, subsequent encounter S42.032G Encounter type: subsequent encounter Clavicle location: lateral end Fracture alignment: displaced Fracture healing: with delayed healing
--- OUTSIDE RECORDS SUMMARY | 2024-05-15 14:06 | XMS_ITS | Clinical Summary ---
Author Organization [facility] Address [address] [place] [address] Care Team Providers Care Sales Representative Supervisor Name Role Phone Pcp, No Primary Care [...] age to complete this topic Care Teams Sales Representative Supervisor Relationship Specialty Start Date End Date Pcp, No PCP - General General Medicine 04/16/20 Pcp, No General Medicine 04/16/20
--- OUTSIDE RECORDS SUMMARY | 2024-05-15 14:06 | XMS_ITS | Clinical Summary ---
Author Organization [facility] Address [address] [place] [phone] Care Team Providers Care Radio Time Buyer Name Role Phone Unavailable Primary Care Provider [...] ( - 2023-2 5 season) 2023 Influenza Vaccine (Season Ended) 2024 HIB Vaccines Aged Out No longer eligi [...] age to complete this topic Meningococcal B Vaccine Aged Out No l onger eligible based on patient's age to complete [...]
--- OUTSIDE RECORDS SUMMARY | 2024-05-15 14:06 | XMS_ITS | Clinical Summary ---
Author Organization [facility] Address [address] [place] [address] Care Team Providers Care Tin Dipper Name Role Phone Sukhwinder Potts MD Primary [...] age to complete this topic Care Teams Tin Dipper Relationship Specialty Start Date End Date Sukhwinder Potts MD PCP - General 09/11/22 Sukhwinder Potts MD PCP - Backup PCP Pediatrics 03/08/23
--- OUTSIDE RECORDS SUMMARY | 2024-05-15 14:06 | XMS_ITS | Encounter Summary ---
Author Organization [facility] Address [address] [place] [address] Care Team Providers Care Director Of Event Sales Name Role Phone Pcp, No Primary Care Provider Unavailabl e Pcp, No Unavailable Unavailable Encounter Details Date Type Department Care Team (Late st Contact Info) Description 04/16/2020 2:10 PM EST Hospital Encounter [facility] [address] [place] [phone] Matthew Lang MD [address] [place] [address] Social History Tobacco Use Types Packs/Day Years [...] on filedocumented in this encounter Care Teams Director Of Event Sales Relationship Specialty Start Date End Date Pcp, No PCP - General General Medicine 04/16/20 Pcp, No General Medicine 04/16/20 documented as of this encounter
== END 2024-05-15 13:08 | disposition home or self-care (01) ==
LOC: HO.HOS 11:34
PROVIDERS: Visit Provider Physician Assistant
DX: S42.032G Displaced fracture of lateral end of left clavicle, subsequent encounter for fracture with delayed healing (principal)
CPT/HCPCS: 99024

== ENCOUNTER → 2024-05-15 11:38 | Outpatient (BNV) | payer OTHER, SELFPAY | PROVIDERS: Visit Provider Radiology Diagnostic Radiology | DX: M85.811 Other specified disorders of bone density and structure, right shoulder (principal) | CPT/HCPCS: 73000 ==

== ENCOUNTER 2024-05-15 13:52 | Outpatient (REF) | payer OTHER, SELFPAY ==
--- OUTSIDE RECORDS SUMMARY | 2024-05-16 14:16 | XMS_ITS | Encounter Summary ---
Author Organization [facility] Address [address] [place] [address] Care Team Providers Care Manager Retention Name Role Phone Pcp, No Primary Care Provider Unavailabl e Pcp, No Unavailable Unavailable Encounter Details Date Type Department Care Team (Late st Contact Info) Description 04/16/2020 2:10 PM EST Hospital Encounter [facility] [address] [place] [phone] Matthew Lang MD [address] [place] [address] Social History Tobacco Use Types Packs/Day Years [...] on filedocumented in this encounter Care Teams Manager Retention Relationship Specialty Start Date End Date Pcp, No PCP - General General Medicine 04/16/20 Pcp, No General Medicine 04/16/20 documented as of this encounter
--- OUTSIDE RECORDS SUMMARY | 2024-05-16 14:16 | XMS_ITS | Clinical Summary ---
Author Organization [facility] Address [id number] [place] [id number] Care Team Providers Care Director Airport Operations Name Role Phone Unavailable Primary Care Provider [...]
--- OUTSIDE RECORDS SUMMARY | 2024-05-16 14:16 | XMS_ITS | Clinical Summary ---
Author Organization [facility] Address [address] [place] [address] Care Team Providers Care Director Revenue Name Role Phone Sukhwinder Potts MD Primary [...] age to complete this topic Care Teams Director Revenue Relationship Specialty Start Date End Date Sukhwinder Potts MD PCP - General 09/11/22 Sukhwinder Potts MD PCP - Backup PCP Pediatrics 03/08/23
--- OUTSIDE RECORDS SUMMARY | 2024-05-16 14:16 | XMS_ITS | Clinical Summary ---
Author Organization [facility] Address [address] [place] [address] Care Team Providers Care Saloon Keeper Name Role Phone Pcp, No Primary Care [...] age to complete this topic Care Teams Saloon Keeper Relationship Specialty Start Date End Date Pcp, No PCP - General General Medicine 04/16/20 Pcp, No General Medicine 04/16/20
--- OUTSIDE RECORDS SUMMARY | 2024-05-16 14:16 | XMS_ITS | Clinical Summary ---
Author Organization [facility] Address [address] [place] [address] Care Team Providers Care Pickle Cutter Name Role Phone Unavailable Primary Care [...] Advance Directives For more information, please contact: [phone] Documents on File Type Date Recorded Patient Pay Clerk Expl anation Advance Directive and Living Will 11/09/2018 1:50 PM Latest Code Status on File Code Status Date Activated Date Inactivated Comments Full Code 11/09/2018 9:16 PM 11/12/2018 8:26 PM This code status was ascertained in the following way: per unit protocol.
== END 2024-05-15 13:53 | disposition home or self-care (01) ==
LOC: HO.HOSX 13:52
PROVIDERS: Visit Provider Physician Assistant
DX: S42.032G Displaced fracture of lateral end of left clavicle, subsequent encounter for fracture with delayed healing (principal)
CPT/HCPCS: 73000; 99212